=== PATIENT | female | born 1930 | race Caucasian/White ===

== ENCOUNTER 2017-08-16 18:49 | Emergency (ER) | payer OTHER ==
[~2017-08-16] VITALS: Ht 152.4 cm; Wt 79.4 kg
[2017-08-16] MEDS ORDERED: TURMERIC500 M2 PO (20:20)
[2017-08-16] MEDS ORDERED: TRIPLE ANTIBIO1 EACH TOP (20:21)
[2017-08-16] MEDS ORDERED: NAPROSYN500 MG PO (20:21)
[2017-08-16] MEDS ORDERED: NYSTATIN15 G3 TOP (20:23)
[2017-08-16] MEDS ORDERED: BIOFREEZE118 ML TOP (20:23)
[2017-08-16] MEDS ORDERED: TUMS PO (20:24)
[2017-08-16] MEDS ORDERED: NYAMYC15 GM TOP (20:24)
[2017-08-16] MEDS ORDERED: VOLTAREN GEL 1100 G2 TOP (20:25)
[2017-08-16] MEDS ORDERED: ASPIR 8181 MG PO (20:25)
[2017-08-16] MEDS ORDERED: AMLODIPINE BESY10 MG PO (20:25)
[2017-08-16] MEDS ORDERED: ACETAMINOPHEN-1 EAC1 PO (20:25)
[2017-08-16] MEDS ORDERED: JANUVIA 50 MG T50 M1 PO (20:26)
[2017-08-16] MEDS ORDERED: B COMPLEX1 EACH PO (20:26)
[2017-08-16] MEDS ORDERED: VITAMIN D1000 UNI1 PO (20:26)
[2017-08-16] MEDS ORDERED: COZAAR 50 MG TA50 M2 PO (20:27)
[2017-08-16] MEDS ORDERED: IRON325 PO (20:27)
[2017-08-16 20:57] VITALS: BP 154/70
== END 2017-08-16 20:57 | disposition home or self-care (01) ==
LOC: ER 18:49
DX: S01.312A Laceration without foreign body of left ear, initial encounter (principal); Z88.1 Allergy status to other antibiotic agents; W18.39XA Other fall on same level, initial encounter; Y93.89 Activity, other specified; Y92.89 Other specified places as the place of occurrence of the external cause; Y99.8 Other external cause status

== ENCOUNTER → 2018-02-28 | Outpatient (CLI) | payer OTHER ==
[~2018-02-28] MED LIST: ACETAMINOPHEN-1 EAC1 PO; ALEVE220 MG PO; AMLODIPINE BESY10 MG PO; ASPIR 8181 MG PO; AUGMENTIN 500-1 EACH PO; B COMPLEX1 EACH PO; BIOFREEZE118 ML TOP; CALMOSEPTINE O3.5 GM TOP; CENTRUM SILVER1 EAC4 PO; COZAAR 50 MG TA50 M2 PO; HIBICLENS118 ML TOP; HYDROCODONE-AP1 EAC6 PO; IRON325 PO; JANUVIA 50 MG T50 M1 PO; NAPROSYN500 MG PO; NYAMYC15 GM TOP; NYSTATIN15 G3 TOP; TRIPLE ANTIBIO1 EACH TOP; TUMS PO; TURMERIC500 M2 PO; VITAMIN D1000 UNI1 PO; VOLTAREN GEL 1100 G2 TOP
== END | disposition home or self-care (01) ==
LOC: SPEC 08:38
DX: Z43.8 Encounter for attention to other artificial openings (principal); Z88.2 Allergy status to sulfonamides; Z79.899 Other long term (current) drug therapy; Z79.82 Long term (current) use of aspirin; Z79.891 Long term (current) use of opiate analgesic